=== PATIENT | female | born 1980 | race Two or more races ===

== ENCOUNTER 2017-03-25 14:55 | Emergency (ER) | payer MEDICAID ==
[~2017-03-25] VITALS: Ht 165.1 cm; Wt 58.6 kg
[2017-03-25] MEDS ORDERED: LORazepam 1MG TABLET PO ONE (15:30)
[2017-03-25 16:07] LABS: BASOPHILS # (AUTO) 0.01 x10^3/uL (0-0.1); BASOPHILS % (AUTO) 0 % (0-1); EOSINOPHILS # (AUTO) 0.01 x10^3/uL (0-0.4); EOSINOPHILS % (AUTO) 0 % (1-7); LYMPHOCYTES # (AUTO) 0.55 x10^3/uL (1-3.4); LYMPHOCYTES % (AUTO) 15 % (22-44); MD NO; MEAN CORPUSCULAR HEMOGLOBIN 29.2 pg (27.0-34.8); MEAN CORPUSCULAR HGB CONC 33.4 g/dL (32.4-35.8); MEAN CORPUSCULAR VOLUME 87.6 fL (80-100); MEAN PLATELET VOLUME 8.5 fL (7.4-10.4); MONOCYTES # (AUTO) 0.35 x10^3/uL (0.2-0.8); MONOCYTES % (AUTO) 9 % (2-9); NEUTROPHILS # (AUTO) 2.85 x10^3/uL (1.8-6.8); NEUTROPHILS % (AUTO) 76 % (42-75); PLATELET COUNT 181 x10^3/uL (130-400); RED BLOOD COUNT 4.62 x10^6/uL (3.82-5.3); RED CELL DISTRIBUTION WIDTH 13.9 % (9.6-15.2)
[2017-03-25 16:15] LABS: ALBUMIN 4.1 g/dL (3.4-5.0); ANION GAP 7 mmol/L (5-15); CALCIUM 9.1 mg/dL (8.5-10.1); CHLORIDE 106 mmol/L (98-107)
[2017-03-25] MEDS ORDERED: LORazepam 1MG TABLET ONE (16:26)
[2017-03-25 16:33] LABS: ALBUMIN 4.2 g/dL (3.4-5.0); BILIRUBIN, DIRECT 0.3 mg/dL (0.1-0.2)
[2017-03-25 16:37] LABS: ALANINE AMINOTRANSFERASE 20 U/L (12-78); ALKALINE PHOSPHATASE 58 U/L (45-117); BILIRUBIN,TOTAL 1.3 mg/dL (0.2-1.0); TOTAL PROTEIN 7.4 g/dL (6.4-8.2)
[2017-03-25 16:43] LABS: T4 (THYROXINE) 11.7 mcg/dL (4.8-13.9)
[2017-03-25 17:14] VITALS: BP 113/82
== END 2017-03-25 17:16 | disposition home or self-care (01) ==
LOC: ED 17:10
DX: F41.1 Generalized anxiety disorder (principal); R11.2 Nausea with vomiting, unspecified; R19.7 Diarrhea, unspecified
CPT/HCPCS: 36415; 71046; 80048; 80076; 82040; 82247; 82248; 83690; 84436; 84443; 84703; 85025; 93005